=== PATIENT | female | born 1995 | race Hispanic/Latino ===

== ENCOUNTER → 2016-10-28 | Outpatient (CLI) | payer OTHER ==
[~2016-10-28] MED LIST: KEFLEX500 MG PO
== END | disposition home or self-care (01) ==
LOC: CDC
DX: O09.90 Supervision of high risk pregnancy, unspecified, unspecified trimester (principal); Z86.79 Personal history of other diseases of the circulatory system
CPT/HCPCS: 93000

== ENCOUNTER 2017-01-29 07:58 | Inpatient (IN) | payer OTHER ==
[~2017-01-29] VITALS: Ht 157.5 cm; Wt 96.8 kg
[2017-01-29] VITALS (8 sets, daily range): BP systolic 104–132; BP diastolic 61–84
[~2017-01-29 07:58] MED LIST changes: +IRON325 M1 PO; +LO-DOSE ASPIRIN81 M1 PO; +NORMODYNE,TRAN200 MG PO; +PRENATAL TABLE1 EACH PO
[2017-01-29 10:33] LABS: BASOPHIL COUNT 0.1 K/uL (0-0.1); EOSINOPHIL (%) 0.4 % (0-5); HEMATOCRIT 32.8 % (36.0-46.0); IMMATURE GRANULOCYTE (%) 2.4 % (0.0-0.7); IMMATURE GRANULOCYTE COUNT 0.2 K/uL; LYMPHOCYTE COUNT 1.8 K/uL (1.0-2.8); MCH 27.2 PG (29.0-34.0); MCHC 32.9 G/DL (30.0-36.0); MCV 82.6 FL (83-99); MEAN PLAT.VOLUME 10.4 uM^3 (9.5-12.4); MONOCYTE (%) 7.8 % (3-12); MONOCYTE COUNT 0.6 K/uL (0-0.8); NEUTROPHIL (%) 65.3 % (45-76); PLATELET COUNT 303 K/uL (156-360); RBC DIS.WIDTH-CV 13.8 % (11.8-14.6); RBC DIS.WIDTH-SD 41.3 % (39-53); RED BLOOD COUNT 3.97 M/uL (3.80-5.20); WHITE BLOOD COUNT 7.6 K/uL (4.1-10.2)
[2017-01-29 10:49] LABS: ANION GAP 8 MEQ/L (2-14); CHLORIDE 110 MEQ/L (99-109); POTASSIUM 4.3 MEQ/L (3.7-5.4); SAMPLE HEMOLYSIS CHECK 0; SAMPLE ICTERIC CHECK 0; SAMPLE LIPEMIA CHECK 0; SODIUM 140 MEQ/L (136-147); TOTAL BILIRUBIN 0.2 MG/DL (0.0-1.0)
[2017-01-29 10:55] LABS: ALKALINE PHOSPHATASE 244 IU/L (3-129); GFR ESTIMATE (CALCULATED) > 59 mL/min/; GLUCOSE 80 mg/dL (70-99); LACTATE DEHYDROGENASE 147 IU/L (20-246); UREA NITROGEN (BUN) 6 mg/dL (9-23); URIC ACID 3.8 mg/dL (3.1-9.2)
[2017-01-29 10:56] LABS: AMPHETAMINES QUANT VALUE 0 NG/ML; BARBITUATES QUANT VALUE 0 NG/ML; BENZODIAZEPINES QUANT VALUE 0 NG/ML; BENZODIAZEPINES, URINE SCREEN Negative (200 ng/mL); MARIJUANA QUANT VALUE 0 NG/ML; OPIATES QUANTITATIVE VALUE 0 NG/ML; PHENCYCLIDINE QUANT VALUE 0 NG/ML
[2017-01-30] VITALS (7 sets, daily range): BP systolic 111–140; BP diastolic 59–82
[2017-01-30 06:33] LABS: EOSINOPHIL (%) 0.3 % (0-5); HEMATOCRIT 29.4 % (36.0-46.0); IMMATURE GRANULOCYTE (%) 1.2 % (0.0-0.7); IMMATURE GRANULOCYTE COUNT 0.1 K/uL; INSTRUMENT ABS NEUTROPHIL CT 6.4 K/uL; LYMPHOCYTE COUNT 1.8 K/uL (1.0-2.8); MCH 26.3 PG (29.0-34.0); MCV 82.4 FL (83-99); MEAN PLAT.VOLUME 10.3 uM^3 (9.5-12.4); MONOCYTE (%) 7.6 % (3-12); MONOCYTE COUNT 0.7 K/uL (0-0.8); NEUTROPHIL (%) 70.4 % (45-76); NEUTROPHIL COUNT 6.4 K/uL (1.8-6.4); PLATELET COUNT 292 K/uL (156-360); RBC DIS.WIDTH-CV 13.8 % (11.8-14.6); RBC DIS.WIDTH-SD 41.4 % (39-53); RED BLOOD COUNT 3.57 M/uL (3.80-5.20); WHITE BLOOD COUNT 9.2 K/uL (4.1-10.2)
[2017-01-31 02:50] VITALS: BP 125/75
[2017-01-31 07:48] VITALS: BP 118/86
[2017-01-31] MEDS ORDERED: IBUPROFEN800 MG PO (09:33)
[2017-01-31] MEDS ORDERED: ENDOCET 5-3251 EACH PO (09:33)
== END 2017-01-31 18:13 | disposition home or self-care (01) | DRG 765 ==
LOC: 2WEST 07:58 → 2SOUTH 10:57 → 2WEST 01-31 18:13
PROVIDERS: Obstetrics & Gynecology
DX: O34.211 Maternal care for low transverse scar from previous cesarean delivery (principal); O69.81X0 Labor and delivery complicated by cord around neck, without compression, not applicable or unspecified; O10.92 Unspecified pre-existing hypertension complicating childbirth; O99.02 Anemia complicating childbirth; D62 Acute posthemorrhagic anemia; D50.9 Iron deficiency anemia, unspecified; O99.214 Obesity complicating childbirth; E66.9 Obesity, unspecified; Z68.39 Body mass index [BMI] 39.0-39.9, adult; K66.0 Peritoneal adhesions (postprocedural) (postinfection); Z3A.39 39 weeks gestation of pregnancy; Z37.0 Single live birth; Z30.2 Encounter for sterilization; Z87.440 Personal history of urinary (tract) infections; Z87.01 Personal history of pneumonia (recurrent); Z82.5 Family history of asthma and other chronic lower respiratory diseases
CPT/HCPCS: 80053; 80306 90; 83615; 84550; 85025; 86850; 86900; 86901; 87086; 88302; J0131; J0690; J1170; J1200; J1885; J2274; J2405; J2590; J2765; J3010; J7120

== ENCOUNTER 2017-02-03 21:17 | Observation (INO) | payer OTHER ==
[~2017-02-03] VITALS: Ht 157.5 cm; Wt 92.1 kg
[~2017-02-03 21:17] MED LIST changes: +ENDOCET 5-3251 EACH PO; +IBUPROFEN800 MG PO
[2017-02-03 22:00] LABS: HEMATOCRIT 32.1 % (36.0-46.0); MCH 27.1 PG (29.0-34.0); MCHC 32.7 G/DL (30.0-36.0); MCV 82.9 FL (83-99); MEAN PLAT.VOLUME 9.3 uM^3 (9.5-12.4); NRBC (%) 0.4 /100 WBC (0-0); RBC DIS.WIDTH-CV 14.1 % (11.8-14.6); RBC DIS.WIDTH-SD 42.1 % (39-53); RED BLOOD COUNT 3.87 M/uL (3.80-5.20)
[2017-02-03 22:02] LABS: PLATELET COUNT 428 K/uL (156-360)
[2017-02-03 22:21] LABS: CHLORIDE 106 mEq/L (99-109); SODIUM 136 mEq/L (136-147)
[2017-02-03 22:23] LABS: GLUCOSE 100 mg/dL (70-99)
[2017-02-03 22:24] LABS: ANION GAP 9 MEQ/L (2-14)
[2017-02-03 22:25] LABS: TOTAL BILIRUBIN 0.4 mg/dL (0.0-1.0)
[2017-02-03 22:25] LABS: ADD MIUA? YES; BILIRUBIN NEGATIVE; BLOOD LARGE; COLOR YELLOW ((YELLOW)); GLUCOSE (STRIP) NEGATIVE; KETONES 5; LEUKOCYTES TRACE; NITRITE NEGATIVE; PROTEIN (STRIP) 30; SPECIFIC GRAVITY 1.028 (1.000-1.030)
[2017-02-03 22:26] LABS: ALKALINE PHOSPHATASE 177 IU/L (3-129)
[2017-02-03 22:27] LABS: GFR ESTIMATE (CALCULATED) > 59 mL/min/
[2017-02-03 22:28] LABS: UREA NITROGEN (BUN) 16 mg/dL (9-23)
[2017-02-03 22:36] LABS: QUANTITATIVE HCG 115.4 MIU/ML
[2017-02-03 22:52] LABS: BACTERIA RARE /HPF; EPITHELIAL CELLS RARE /HPF; MUCUS 1+ /LPF; UCUL ADDED? YES
[2017-02-04 00:13] LABS: INTER. NORMALIZED RATIO 1.1; PROTHROMBIN TIME 12.3 SEC (10.2-12.9)
[2017-02-04 00:31] LABS: LIPASE 9 U/L (1.0-51.0)
[2017-02-04 09:37] VITALS: BP 121/74
[2017-02-04 16:15] VITALS: BP 111/64
[2017-02-05 08:04] VITALS: BP 120/75
[2017-02-05] MEDS ORDERED: AUGMENTIN875 MG PO (08:55)
[2017-02-05] MEDS ORDERED: FLAGYL500 MG PO (08:56)
== END 2017-02-05 10:41 | disposition home or self-care (01) ==
LOC: EME 21:17 → CANRESERV 02-04 03:26 → 2WEST 02-04 03:26 → EDOF 02-04 03:26 → ENRESERV 02-04 03:26 → 2WEST 02-04 03:26 → ENRESERV 02-04 08:51 → 2WEST 02-04 09:30
PROVIDERS: Physician Assistant
DX: O86.12 Endometritis following delivery (principal); I10 Essential (primary) hypertension
CPT/HCPCS: 71020; 74177; 80053; 81003; 83605; 83690; 84702; 85027; 85610; 87040; 87086; 87502; G0378; J0696; J1580; J2270; J2405; J7030; J7050

== ENCOUNTER 2017-08-07 10:41 | Inpatient (IN) | payer OTHER ==
[~2017-08-07] VITALS: Ht 157.5 cm; Wt 89.0 kg
[~2017-08-07 10:41] MED LIST changes: +AUGMENTIN875 MG PO; +FLAGYL500 MG PO
[2017-08-07 11:03] LABS: HEMOGLOBIN 12.9 G/DL (11.9-15.5); MCH 28.9 PG (29.0-34.0); MCHC 34.9 G/DL (30.0-36.0); MCV 82.8 FL (83-99); PLATELET COUNT 303 K/uL (156-360); RBC DIS.WIDTH-CV 13.3 % (11.8-14.6); RBC DIS.WIDTH-SD 40.2 % (39-53); RED BLOOD COUNT 4.47 M/uL (3.80-5.20); WHITE BLOOD COUNT 11.1 K/uL (4.1-10.2)
[2017-08-07 11:11] LABS: ALBUMIN 4.2 g/dL (3.2-4.8)
[2017-08-07 11:12] LABS: CHLORIDE 103 mEq/L (99-109); POTASSIUM 3.3 mEq/L (3.7-5.4); SODIUM 136 mEq/L (136-147)
[2017-08-07 11:14] LABS: GLUCOSE 105 mg/dL (70-99); TOTAL PROTEIN 7.7 g/dL (6.4-8.3)
[2017-08-07 11:16] LABS: TOTAL BILIRUBIN 0.8 mg/dL (0.0-1.0)
[2017-08-07 11:17] LABS: ALKALINE PHOSPHATASE 97 IU/L (3-129)
[2017-08-07 11:17] LABS: APPEARANCE SL.HAZY ((CLEAR)); BILIRUBIN NEGATIVE; BLOOD NEGATIVE; COLOR YELLOW ((YELLOW)); GLUCOSE (STRIP) NEGATIVE; KETONES NEGATIVE; LEUKOCYTES SMALL; NITRITE NEGATIVE; PROTEIN (STRIP) 30; SPECIFIC GRAVITY 1.017 (1.000-1.030); UROBILINOGEN 0.2 MG/DL (0.2-1.0)
[2017-08-07 11:18] LABS: CREATININE 1.1 mg/dL (0.6-1.3); GFR ESTIMATE (CALCULATED) > 59 mL/min/
[2017-08-07 11:19] LABS: AST (GOT) 43 IU/L (2-34); UREA NITROGEN (BUN) 14 mg/dL (9-23)
[2017-08-07 11:20] LABS: ALT (GPT) 55 IU/L (3-49)
[2017-08-07 11:21] LABS: BACTERIA RARE /HPF; EPITHELIAL CELLS 1+ /HPF; HYALINE CASTS 0-5 /LPF; MUCUS TRACE /LPF; UCUL ADDED? YES; WHITE BLOOD CELLS TNTC /HPF (0-5)
[2017-08-07 11:27] LABS: QUANTITATIVE HCG < 4.0 MIU/ML
[2017-08-07] MEDS ORDERED: ZOLOFT50 MG PO (15:11)
[2017-08-07 16:34] VITALS: BP 143/82
[2017-08-07 19:19] VITALS: BP 131/69
[2017-08-07 23:22] VITALS: BP 122/70
[2017-08-08 06:08] LABS: HEMOGLOBIN 10.2 G/DL (11.9-15.5); MCH 28.1 PG (29.0-34.0); MCHC 32.9 G/DL (30.0-36.0); MCV 85.4 FL (83-99); PLATELET COUNT 268 K/uL (156-360); RBC DIS.WIDTH-CV 13.8 % (11.8-14.6); RBC DIS.WIDTH-SD 42.8 % (39-53); RED BLOOD COUNT 3.63 M/uL (3.80-5.20); WHITE BLOOD COUNT 5.3 K/uL (4.1-10.2)
[2017-08-08 06:24] LABS: CHLORIDE 108 MEQ/L (99-109); CREATININE 0.8 MG/DL (0.6-1.3); GFR ESTIMATE (CALCULATED) > 59 mL/min/; GLUCOSE 85 mg/dL (70-99); POTASSIUM 3.7 MEQ/L (3.7-5.4); SODIUM 139 MEQ/L (136-147); UREA NITROGEN (BUN) 8 mg/dL (9-23)
[2017-08-08 07:28] VITALS: BP 126/92
[2017-08-08 11:26] VITALS: BP 135/84
[2017-08-08 16:14] VITALS: BP 142/74
[2017-08-08 21:45] VITALS: BP 140/93
[2017-08-09 00:47] VITALS: BP 122/65
[2017-08-09 06:22] LABS: HEMATOCRIT 31.7 % (36.0-46.0); HEMOGLOBIN 10.6 G/DL (11.9-15.5); MCH 27.9 PG (29.0-34.0); MCHC 33.4 G/DL (30.0-36.0); MCV 83.4 FL (83-99); PLATELET COUNT 289 K/uL (156-360); RBC DIS.WIDTH-CV 13.6 % (11.8-14.6); RBC DIS.WIDTH-SD 41.4 % (39-53); WHITE BLOOD COUNT 3.7 K/uL (4.1-10.2)
[2017-08-09 06:57] VITALS: BP 134/89
[2017-08-09 11:13] VITALS: BP 145/88
[2017-08-09] MEDS ORDERED: NORMODYNE,TRAN200 MG PO (14:13)
[2017-08-10] MEDS ORDERED: FIORICET 50-301 EAC1 PO ×2 (08:46→08:47)
== END 2017-08-09 16:44 | disposition home or self-care (01) | DRG 872 ==
LOC: EME 10:41 → 5EAST 14:28 → EDOF 14:28 → ENRESERV 14:29 → 5EAST 15:54
PROVIDERS: Hospitalist; Physician Assistant
DX: A41.9 Sepsis, unspecified organism (principal); N10 Acute pyelonephritis; E86.0 Dehydration; E87.6 Hypokalemia; R31.9 Hematuria, unspecified; M54.2 Cervicalgia; I10 Essential (primary) hypertension; G43.909 Migraine, unspecified, not intractable, without status migrainosus; F41.9 Anxiety disorder, unspecified; F32.9 Major depressive disorder, single episode, unspecified; D50.9 Iron deficiency anemia, unspecified; E66.9 Obesity, unspecified
CPT/HCPCS: 71275; 74177; 80048; 80053; 81003; 83605; 84702; 85027; 87040; 87086; 93005; 99281; 99285; J0696; J1644; J1885; J3010; J7030